=== PATIENT | female | born 1950 | race Caucasian/White ===

== ENCOUNTER 2021-03-24 08:38 | Outpatient (CLI) | payer MEDICARE, SELFPAY ==
--- NOTE | ~2021-03-24 | NM_ITS ---
NM stress w perf spect multi Procedure: The patient was stressed using Modified Clifford protocol. Prior to the end of exercise 31.5 mCi Tc 99m IV administered. Rest imaging performed following administration of 9.9 mCi Tc 99m IV. Images were reformatted into short axis, horizontal and vertical long axis sections for visual and qu antitative analysis. Indication: Chest pain Comparison: None Findings: Computer assisted qualitative and quantitative analysis of the immediate and delayed images revealed normal left ventricular perfusion without evidence of fixed or reversible perfusion abnorma lity to suggest ischemia or infarction. Normal left ventricular cavity size, wall motion and ejectio n fraction. Left ventricular ejection fraction measures 89%. Impression: 1: No scintigraphic evidence of resting or stress induced perfusion abnormality. 2: Normal left ventricle ejection fraction measuring 89%. Reviewed, dictated and finalized at location B. Impression: 1: No scintigraphic evidence of resting or stress induced perfusion abnormality . 2: Normal left ventricle ejection fraction measuring 89%.
--- NOTE | 2021-03-24 09:33 | EST_ITS ---
Patient Info Name: Esme Jaimes Age: 70 years : 1950 Gender: Female Ht: 66 in Wt: 175 lbs BSA: 1.94 m2 HR: 62 bpm BP: 147 / 93 mmHg Heart Rhythm: Sinus Rhythm Exam Date: 03/24/2021 9:43 AM Exam Location: [facility] Stress Patient Status: Outpatient Admit Date: 03/24/2021 Staff Ordering Physician: Lokesh Lainez DO Attending Provider: Lokesh Lainez DO Exercise Technologist: Lynn Carbone CT Exercise Physician: Latrell Chaidez DO Exam Type: CA stress test treadmill w NM Study Info Indications R07.89 - Other chest pain A nuclear stress test was performed. Summary 1. 1. Negative Clifford exercise stress test for ischemic ST changes by ECG criteria. 2. 2. Reduced functional capacity, achieving 5.9 METs of workload. 3. 3. Baseline hypertension with hypertensive response to exercise. 4. 4. Appropriate HR response to exercise. 5. 5. Appropriate HR recovery at 1 minute post exercise. 6. 6. Nuclear scan to follow and will be reported separately. Please correlate with it. 7. 7. Patient informed of the above results. Protocol: Clifford Stress ECG Details Stage: REST Duration (min): 2 min : 45 sec Speed (mph): 0.0 Grade (%): 0 HR (bpm): 58 SBP (mmHg): 147 DBP (mmHg): 93 METS: --- Stage: REST Duration (min): 17 min : 56 sec Speed (mph): 0.0 Grade (%): 0 HR (bpm): 61 SBP (mmHg): 147 DBP (mmHg): 93 METS: --- Stage: STAGE 1 Duration (min): 1 min : 0 sec Speed (mph): 1.7 Grade (%): 10 HR (bpm): 104 SBP (mmHg): 147 DBP (mmHg): 93 METS: --- Stage: STAGE 1 Duration (min): 2 min : 0 sec Speed (mph): 1.7 Grade (%): 10 HR (bpm): 119 SBP (mmHg): 147 DBP (mmHg): 93 METS: --- Stage: STAGE 1 Duration (min): 3 min : 0 sec Speed (mph): 1.7 Grade (%): 10 HR (bpm): 133 SBP (mmHg): 253 DBP (mmHg): 102 METS: --- Stage: STAGE 2 Duration (min): 0 min : 40 sec Speed (mph): 2.5 Grade (%): 12 HR (bpm): 137 SBP (mmHg): 253 DBP (mmHg): 102 METS: --- Stage: RECOVERY Duration (min): 0 min : 19 sec Speed (mph): 0.0 Grade (%): 0 HR (bpm): 137 SBP (mmHg): 254 DBP (mmHg): 102 METS: --- Stage: RECOVERY Duration (min): 1 min : 19 sec Speed (mph): 0.0 Grade (%): 0 HR (bpm): 124 SBP (mmHg): 254 DBP (mmHg): 102 METS: --- Stage: RECOVERY Duration (min): 2 min : 19 sec Speed (mph): 0.0 Grade (%): 0 HR (bpm): 115 SBP (mmHg): 254 DBP (mmHg): 102 METS: --- Stage: RECOVERY Duration (min): 3 min : 19 sec Speed (mph): 0.0 Grade (%): 0 HR (bpm): 102 SBP (mmHg): 264 DBP (mmHg): 106 METS: --- Stage: RECOVERY Duration (min): 4 min : 19 sec Speed (mph): 0.0 Grade (%): 0 HR (bpm): 99 SBP (mmHg): 264 DBP (mmHg): 106 METS: --- Stage: RECOVERY Duration (min): 5 min : 19 sec Speed (mph):
== END 2021-03-24 08:39 | disposition home or self-care (01) ==
PROVIDERS: PCP Internal Medicine; Visit Provider Internal Medicine
DX: R07.89 Other chest pain (principal)
CPT/HCPCS: 78452; 93017; A9502

== ENCOUNTER → 2021-08-18 09:49 | Outpatient (CLI) | payer MEDICARE, SELFPAY ==
[2021-08-18 18:48] LABS: SARS-CoV-2 RNA PCR Positive
== END ==
PROVIDERS: PCP Internal Medicine; Visit Provider Internal Medicine
DX: U07.1 COVID-19 (principal)
CPT/HCPCS: C9803; U0003; U0005

== ENCOUNTER → 2022-03-04 07:01 | Outpatient (CLI) | payer MEDICARE, SELFPAY ==
--- NOTE | ~2022-03-04 | XR_ITS ---
EXAMINATION: XR chest 2V 03/04/2022 07:15 INDICATION: Pneumonia PROCEDURE: 2 view chest COMPARISON: Comparison to multiple prior studies sequentially, with oldest reviewed study dated 11/2005. FINDINGS: There is left lower lobe airspace disease, best seen posteriorly on the lateral view, consi stent with pneumonia. The cardiomediastinal silhouette is within normal limits. There are no pleural effusions. There is no pneumothorax suspected. IMPRESSION: 1: Left lower lobe airspace disease, compatible with pneumonia. Reviewed, dictated and finalized at location A.
== END ==
PROVIDERS: PCP Internal Medicine; Visit Provider Internal Medicine
DX: J18.9 Pneumonia, unspecified organism (principal); R91.8 Other nonspecific abnormal finding of lung field
CPT/HCPCS: 71046

== ENCOUNTER 2022-10-20 00:44 | Day surgery (SDC) | payer MEDICARE, SELFPAY ==
[2022-10-06 14:43] VITALS: BMI 32.3
[2022-10-20 07:18] VITALS: BP 151/74; PULSE 82; RESP 21; TEMP 36.5; O2SAT 91
[2022-10-20] MEDS: LACTATED RINGERS 1,000 ML 150 ML IV CONT (07:34)
--- NOTE | 2022-10-20 08:01 | PM.HPGS ---
History of Present Illness History of Present Illness Consent: Risks, benefits, and alternatives have been discussed and questions answered. Patient agrees to proceed with procedure. Chief complaint: GERD, hx colon polyps Narrative: Esme Jaimes is a 72 year old female Presents today for both colonoscopy an EGD. Patient desires neoplasia screening colonoscopy. Patient's current weight appetite and bowel movements are normal. Patient denies abdominal pain. She has had no bleeding. She has had previous colonoscopies that have had showed colon polyps. Previous colonoscopy 2018. Additionally patient has history of chronic GE reflux disease. Currently symptoms are maintained on omeprazole 20mg p.o. daily. She notes if she stops this medication she promptly will have recurrent heartburn. She has been asked have follow-up EGD by primary care service. Patient denies any bleeding weight loss or dysphagia. Review of Systems Review of Systems: Review of systems noncontributory. [facility] Family History Family History Mother Patient's mother is Father Patient's father is Sibling Patient's sister is Social History Social History (Updated 09/23/22 @ 09:43 by Jarvis Mckeon MA) Smoking packs per day: 1 Smoking cigarettes per day: 20.0 Smoking status: Former smoker Second hand tobacco smoke exposure: No Smoking end date: 10/02/14 Alcohol intake: former Alcohol use details: rarely Substance use: never Substance use type: does not use Lack of Transportation: No Lack of Food: Never True Current Housing: I Have Housing Concerned About Future Housing: No Difficulty Paying Gas/Electric Bills: No Difficulty Paying for Meds: No Currently Unemployed: No Education: Bachelor's Degree Difficulty w/ Childcare or Family Care: No Living arrangements: alone Spiritual care concerns: No Meds Home Medications and Allergies Home Medications Medication Instructions Recorded Confirmed Type simvastatin 10 mg tablet 10 mg PO DAILY #90 tabs 02/09/22 10/06/22 Rx albuterol sulfate 90 mcg/actuation 2 puff inhalation Q4-6H PRN 03/09/22 10/06/22 Rx aerosol inhaler (ProAir HFA) shortness of breath or wheezing #18 grams ergocalciferol (vitamin D2) 1,250 50,000 unit PO WEEKLY #13 caps 04/25/22 10/06/22 Rx mcg (50,000 unit) capsule meloxicam 15 mg tablet 15 mg PO DAILY #90 tabs 05/10/22 10/06/22 Rx losartan 100 mg tablet 100 mg PO DAILY #90 tabs 05/19/22 10/06/22 Rx carvedilol 6.25 mg tablet 6.25 mg PO Q12H #180 tabs 06/15/22 10/06/22 Rx escitalopram oxalate 20 mg tablet 20 mg PO DAILY #30 tabs 06/29/22 10/06/22 Rx fluticasone propionate 50 2 spray intranasal DAILY PRN nasal 08/18/22 10/06/22 Rx mcg/actuation nasal congestion #15.8 mL spray,suspension omeprazole 20 mg capsule,delayed 20 mg PO DAILY 10/06/22 10/06/22 History release Allergies Allergy/AdvReac Type Severity Reaction Status Date / Time nabumetone Allergy Mild unknown Verified 10/20/22 07:15 amoxicillin AdvReac Intermediate Diarrhea Verified 10/20/22 07:15 Vital Signs Vital Signs - 24 hr 10/20/22 07:18 Temperature 97.7 F Pulse Rate 82 Respiratory Rate 21 H Blood Pressure 151/74 H Pulse Oximetry 91 Oxygen Delivery Room Air Exam Narrative: Physical exam reveals patient to be alert. Vital signs stable. HEENT exam is unremarkable. Patient is anicteric. Lungs are clear to auscultation and percussion. Heart is without murmur or extra sounds. Abdomen bowel sounds are present soft nontender with no organomegaly. Digital external rectal exam normal. Assessment and Plan Assessment and plan (1) GERD (gastroesophageal reflux disease): Code(s): K21.9 - Gastro-esophageal reflux disease without esophagitis Status: Acute Assessment and Plan: Patient with chronic GE reflu
--- NOTE | 2022-10-20 08:29 | WPDANESEPPF ---
Anes - Initial Pre Proc Eval Procedure: Operation Date: 10/20/22 08:30 Proposed Procedures p Esophagogastroduodenoscopy & Screening Colonoscopy - Keenan Vasquez MD Date/Time: 10/20/22 08:29 Surgeon: Keenan Vasquez MD Pre Op Diagnosis: GERD, hx colon polyps Patient Data Age: 72 Gender: F Height: 1.68 m Weight: 89.9 kg Last Vital Signs Temp 97.7 F 10/20/22 07:18 Pulse 82 10/20/22 07:18 Resp 21 H 10/20/22 07:18 BP 151/74 H 10/20/22 07:18 Pulse Ox 91 10/20/22 07:18 O2 Del Method Room Air 10/20/22 07:18 Allergies Allergy/AdvReac Type Severity Reaction Status Date / Time nabumetone Allergy Mild unknown Verified 10/20/22 07:15 amoxicillin AdvReac Intermediate Diarrhea Verified 10/20/22 07:15 Home Medications Medication Instructions Recorded Confirmed Type simvastatin 10 mg tablet 10 mg PO DAILY #90 tabs 02/09/22 10/06/22 Rx albuterol sulfate 90 mcg/actuation 2 puff inhalation Q4-6H PRN 03/09/22 10/06/22 Rx aerosol inhaler (ProAir HFA) shortness of breath or wheezing #18 grams ergocalciferol (vitamin D2) 1,250 50,000 unit PO WEEKLY #13 caps 04/25/22 10/06/22 Rx mcg (50,000 unit) capsule meloxicam 15 mg tablet 15 mg PO DAILY #90 tabs 05/10/22 10/06/22 Rx losartan 100 mg tablet 100 mg PO DAILY #90 tabs 05/19/22 10/06/22 Rx carvedilol 6.25 mg tablet 6.25 mg PO Q12H #180 tabs 06/15/22 10/06/22 Rx escitalopram oxalate 20 mg tablet 20 mg PO DAILY #30 tabs 06/29/22 10/06/22 Rx fluticasone propionate 50 2 spray intranasal DAILY PRN nasal 08/18/22 10/06/22 Rx mcg/actuation nasal congestion #15.8 mL spray,suspension omeprazole 20 mg capsule,delayed 20 mg PO DAILY 10/06/22 10/06/22 History release Patient hx anesthesia problems: none Family hx anesthesia problems: none Results Review: All pre-operative results and documents have been reviewed as part of the pre-operative evaluation. [facility] Family History Family History Mother Patient's mother is Father Patient's father is Sibling Patient's sister is Social History Social History (Updated 09/23/22 @ 09:43 by Jarvis Mckeon MA) Smoking packs per day: 1 Smoking cigarettes per day: 20.0 Smoking status: Former smoker Second hand tobacco smoke exposure: No Smoking end date: 10/02/14 Alcohol intake: former Alcohol use details: rarely Substance use: never Substance use type: does not use Lack of Transportation: No Lack of Food: Never True Current Housing: I Have Housing Concerned About Future Housing: No Difficulty Paying Gas/Electric Bills: No Difficulty Paying for Meds: No Currently Unemployed: No Education: Bachelor's Degree Difficulty w/ Childcare or Family Care: No Living arrangements: alone Spiritual care concerns: No Anes - Eval Final PreProcedure Day of Procedure 10/20/22 08:29 Patient weight: obese Heart: regular rate and rhythm Lungs: clear to auscultation Airway: Mallampati scale class III Neurological: alert and oriented Last oral intake: >/= 8 hours ASA classification: III Emergent: no Anesthetic plan: proceed Anesthesia type and monitoring: general GIVS and standard monitoring Results Review: All pre-operative results and documents have been reviewed as part of the pre-operative evaluation. Informed Consent: The patient's anesthetic plan and its attendant risks and benefits were discussed with the patient/family/POA. Questions were solicited and answers provided to the satisfaction of the patient/family/POA.
--- NOTE | 2022-10-20 09:01 | SUR.OPER ---
EGD START: 839; END: 842. COLONOSCOPY START: 848; END: 59.
[2022-10-20 09:04] VITALS: BP 121/75; PULSE 63; RESP 15; O2SAT 93
[2022-10-20 09:14] VITALS: BP 128/57; PULSE 64; RESP 15; O2SAT 94
[2022-10-20 09:24] VITALS: BP 131/78; PULSE 62; RESP 15; O2SAT 93
== END 2022-10-20 09:36 | disposition home or self-care (01) ==
PROVIDERS: PCP Internal Medicine; Visit Provider Internal Medicine Gastroenterology
PROC: 0DJ08ZZ Inspection of Upper Intestinal Tract, Via Natural or Artificial Opening Endoscopic (ICD-10-PCS; CPT 43235; principal; 2022-10-20 08:30)
DX: Z12.11 Encounter for screening for malignant neoplasm of colon (principal); D12.0 Benign neoplasm of cecum; D12.5 Benign neoplasm of sigmoid colon; K64.8 Other hemorrhoids; K21.9 Gastro-esophageal reflux disease without esophagitis; Z79.51 Long term (current) use of inhaled steroids; Z87.891 Personal history of nicotine dependence; E66.9 Obesity, unspecified; Z68.32 Body mass index [BMI] 32.0-32.9, adult
CPT/HCPCS: 45385; 43239; 87081; 88305; J2704; J7120

== ENCOUNTER 2022-12-06 09:36 | Outpatient (CLI) | payer MEDICARE, SELFPAY ==
--- NOTE | 2023-01-03 15:20 | WPDSLEEPSTUD ---
Sleep Study Date of Study: 12/06/22 Ordering Provider: Lokesh Lainez DO Interpreting Physician: Arely Pratt DO Sleep Study Type: Split Polysomnogram Height: 1.7 m Weight: 89.811 kg Body Mass Index: 31.0 Neck Circumference (inches): 17.5 [place]: 12 Reason for Sleep Study Daytime hypersomnia, snoring Sleep History The patient is a 72-year-old female with hypertension, hyperlipidemia, anxiety, GERD, vitamin-D deficiency and history of tobacco use that had a sleep study ordered by her primary care physician for evaluation of sleep apnea. The patient rarely awakens from sleep short of breath. She denies awakening at night with heartburn, belching or cough. She frequently snores. She occasionally has trouble sleeping when she has a cold. She denies waking up gasping for air throughout the night. She denies having breathing problems at night observed by herself or others. She denies sweating excessively at night. She occasionally has heart palpitations or irregular heartbeats during the night. She constantly falls asleep during the day but never while driving. He denies sleep paralysis, cataplexy and hypnagogic / hypnopompic hallucinations. She denies feeling afraid of going to sleep. She rarely has nightmares. She rarely remembers her dreams. She occasionally has thoughts racing through her mind. She rarely feels sad or depressed. She frequently has anxiety. She frequently has muscular tension. She frequently notices parts of her body jerk. She rarely kicks during the night. She rarely has crawling and aching feelings in her legs and occasionally has leg pain during the night. She denies awakening with morning jaw pain. She is occasionally bothered by pain during the day and constantly awakened by pain during the night. She frequently wakes up feeling stiff in the morning. She occasionally wakes up with sore or achy muscles. She frequently wakes up with pain in the neck, spine or other joints. She goes to bed between 10 to 10:30 p.m. on both weekdays and weekends. It takes her 15 minutes to fall asleep. She wakes up 3 times throughout the night to urinate and is able to fall back asleep within a few minutes. She wakes up at 7:00 a.m. on both weekdays and weekends. She typically gets 8-1/2 hours of sleep per night. She will stay in bed for 5 minutes after waking up in the morning. She does not consume any caffeinated beverages within 2 hours of bedtime. She does not engage in physical exercise before bedtime. She will watch television before falling asleep. She will take naps in the afternoon or the evening but they are not refreshing. She drinks half a cup of coffee per day. She is a former smoker. She occasionally consumes alcoholic beverages. She denies recreational drug use. [facility] Family History Family History Mother Patient's mother is Father Patient's father is Sibling Patient's sister is Social History Social History Smoking packs per day: 1 Smoking cigarettes per day: 20.0 Smoking status: Former smoker Second hand tobacco smoke exposure: No Smoking end date: 10/02/14 Alcohol intake: former Alcohol use details: rarely Substance use: never Substance use type: does not use Lack of Transportation: No Lack of Food: Never True Current Housing: I Have Housing Concerned About Future Housing: No Difficulty Paying Gas/Electric Bills: No Difficulty Paying for Meds: No Currently Unemployed: No Education: Bachelor's Degree Difficulty w/ Childcare or Family Care: No Living arrangements: alone Spiritual care concerns: No Medications Home Medications Medication Instructions Recorded Confirmed Type albuterol sulfate 90 mcg/actuation 2 puff inhalation Q4-6H PRN 03/09/22 10/06/22
[2023-01-03 16:04] VITALS: BMI 31.0
== END 2022-12-07 07:04 | disposition home or self-care (01) ==
LOC: ANHCSM 09:38
PROVIDERS: PCP Internal Medicine; Visit Provider Internal Medicine
DX: G47.33 Obstructive sleep apnea (adult) (pediatric) (principal); G47.10 Hypersomnia, unspecified; I10 Essential (primary) hypertension; E78.5 Hyperlipidemia, unspecified; K21.9 Gastro-esophageal reflux disease without esophagitis; E55.9 Vitamin D deficiency, unspecified; Z87.891 Personal history of nicotine dependence
CPT/HCPCS: 95811

== ENCOUNTER 2023-07-11 08:14 | Emergency (ER) | payer MEDICARE, SELFPAY ==
--- NOTE | ~2023-07-11 | CT_ITS ---
EXAMINATION: CT lumbar spine wo con DATE: 07/11/2023 10:24 INDICATION: Low back pain. Sciatica. TECHNIQUE: Computed tomography (CT) of the lumbar spine was performed without intravenous contrast. A utomated exposure control and iterative reconstruction technique were employed. The dose-length produ ct was 903.91 mGy-cm. COMPARISON: None FINDINGS: Aortic atherosclerosis is noted. There is 3 degrees levocurvature of lumbar spine. There ar e Schmorl's nodes at most levels. There is mildly decreased disc height at L1-L2, moderately decrease d disc height at L2-L3, and mildly decreased disc height at L3-L4 and L5-S1. The following disc level s are specifically discussed: L1-L2: The disc is bulging. There is moderate bilateral facet joint osteoarthritis. There is mild marylu ateral neural foraminal stenosis. There is mild central canal stenosis. L2-L3: The disc is bulging. There is moderate bilateral facet joint osteoarthritis. There is mild marylu ateral neural foraminal stenosis. There is mild central canal stenosis. L3-L4: The disc is bulging. There is severe bilateral facet joint osteoarthritis. There is mild bilat eral neural foraminal stenosis. There is mild central canal stenosis. L4-L5: The disc is bulging. There is severe bilateral facet joint osteoarthritis. There is mild bilat eral neural foraminal stenosis. There is mild central canal stenosis. L5-S1: The disc is bulging. There is severe bilateral facet joint osteoarthritis. There is mild bilat eral neural foraminal stenosis. There is mild central canal stenosis. IMPRESSION: 1. Moderate lumbar spondylosis. Reviewed, dictated and finalized at location A.
[2023-07-11 08:15] VITALS: BP 166/98; PULSE 69; RESP 16; TEMP 36.7; O2SAT 97
--- NOTE | 2023-07-11 09:18 | ED.BACK ---
HPI - Back Pain/Injury General Chief Complaint: Back Pain/Injury Stated Complaint: back pain Time Seen by Provider: 07/11/23 08:36 History of Present Illness HPI Narrative: Patient is a 72-year-old female presenting with lower back pain. Patient states that she has had lower back pain before but now it is radiating down her right leg which is never done before. States that it is like a shooting pain with tingling. She was moving a heavy box about a week ago and felt pain in her lower back which has been worsening. No numbness or weakness, saddle anesthesia, bladder or bowel incontinence, fevers. No further injuries or complaints. Related Data Home Medications Medication Instructions Recorded Confirmed omeprazole 20 mg capsule,delayed 20 mg PO DAILY 10/06/22 07/19/23 release umeclidinium 62.5 mcg-vilanterol 1 inh inhalation DAILY 04/21/23 07/19/23 25 mcg/actuation powdr for inhalation (Anoro Ellipta) Allergies Allergy/AdvReac Type Severity Reaction Status Date / Time nabumetone Allergy Mild unknown Verified 07/18/23 13:17 amoxicillin AdvReac Intermediate Diarrhea Verified 07/18/23 13:17 Review of Systems Review of Systems: All systems reviewed & are unremarkable except as noted in HPI and below PMFSH Family History Family History Mother Patient's mother is Father Patient's father is Sibling Patient's sister is Social History Social History Smoking packs per day: 1 Smoking cigarettes per day: 20.0 Smoking status: Former smoker Second hand tobacco smoke exposure: No Smoking end date: 10/02/14 Alcohol intake: former Alcohol use details: rarely Substance use: never Substance use type: does not use Lack of Transportation: No Lack of Food: Never True Current Housing: I Have Housing Concerned About Future Housing: No Difficulty Paying Gas/Electric Bills: No Difficulty Paying for Meds: No Currently Unemployed: No Education: Bachelor's Degree Difficulty w/ Childcare or Family Care: No Living arrangements: alone Spiritual care concerns: No Exam Narrative: GENERAL: Well-appearing and in no acute distress. HEAD: Normocephalic, atraumatic. EYES: PERRLA and EOMI. ENT: Grossly unremarkable NECK: Supple. CHEST: No respiratory distress. HEART: Regular rate and rhythm ABDOMEN: Nondistended BACK: Tenderness bilateral paraspinal muscles lower lumbar region EXTREMITIES: Normal range of motion. No edema. SKIN: Warm, dry, no rash. NEURO: No focal deficits. Alert and oriented x3. 5 out of 5 strength in both lower extremities without sensory deficits, ambulating normally PSYCH: Normal mood and affect. Course Vital Signs Vital signs: Vital Signs Temperature 98.0 F 07/11/23 08:15 Pulse Rate 69 07/11/23 08:15 Respiratory Rate 16 07/11/23 08:15 Blood Pressure 166/98 H 07/11/23 08:15 Pulse Oximetry 97 07/11/23 08:15 Oxygen Delivery Room Air 07/11/23 08:15 Temperature 98.0 F 07/11/23 08:15 Pulse Rate 69 07/11/23 08:15 Respiratory Rate 16 07/11/23 08:15 Blood Pressure 166/98 H 07/11/23 08:15 Pulse Oximetry 97 07/11/23 08:15 Oxygen Delivery Room Air 07/11/23 08:15 MDM - Back Pain/Injury MDM Narrative Medical decision making narrative: 72-year-old female presenting with lower back pain that shoots down her right leg. Vital stable. Exam remarkable for the above. CT lumbar spine shows moderate lumbar spondylosis but no other acute abnormalities. Discussed reassuring imaging with the patient. Advised that she can continue taking her meloxicam and use Tylenol as well. Percocet for severe pain. We will start her on short course of steroids. Advise close PCP follow-up. Strict return precautions given. Voiced understanding and is agreeable with plan. Dischar
[2023-07-11] MEDS: predniSONE 20 MG TABLET 40 MG PO (10:42)
== END 2023-07-11 11:16 | disposition home or self-care (01) ==
PROVIDERS: Emergency Provider Emergency Medicine; PCP Internal Medicine
DX: M54.50 Low back pain, unspecified (principal); M54.16 Radiculopathy, lumbar region
CPT/HCPCS: 72131; 99284; J7512

== ENCOUNTER → 2023-07-26 08:44 | Outpatient (CLI) | payer MEDICARE, SELFPAY ==
--- NOTE | ~2023-07-26 | MR_ITS ---
MRI of the lumbar spine Clinical History: Back pain Technique: Axial T2-weighted images, and sagittal T1-weighted, T2-weighted, and and T2 fat-sat images were acquired. Findings: There is no fracture or subluxation of the lumbar spine. Vertebral bodies maintain normal h eight and alignment. No suspicious bone marrow signal abnormality seen. At L1-L2, there is minimal disc bulge with moderate facet arthropathy. No central canal stenosis. No definite neural foraminal narrowing. At L2-L3, there is no disc bulge or herniation. There is mild facet arthropathy. No central canal manuel nosis or neural foraminal narrowing. At L3-L4, there is minimal disc bulge with mild to moderate facet arthropathy. No sarah central canal stenosis. Minimal right neural foraminal narrowing. Left neural foramen preserved. At L4-L5, there is minimal disc bulge with moderate facet arthropathy. There is minimal central canal stenosis. Neural foramina are preserved. At L5-S1, there is disc bulge, with probable right foraminal disc protrusion and right lateral recess stenosis. There is moderate facet arthropathy. No central canal stenosis. There is mild right neural foraminal narrowing. Left neural foramen preserved. Paravertebral soft tissues are unremarkable. Impression: Mild degenerative spondylosis overall, as detailed above. Reviewed, dictated and finalized at [facility]. Impression: Mild degenerative spondylosis overall, as detailed above.
== END ==
PROVIDERS: PCP Physician Assistant; Visit Provider Physician Assistant
DX: M51.36 Other intervertebral disc degeneration, lumbar region (principal); M51.37 Other intervertebral disc degeneration, lumbosacral region
CPT/HCPCS: 72148

== ENCOUNTER 2025-05-05 08:12 | Outpatient (CLI) | payer MEDICARE, SELFPAY ==
--- NOTE | ~2025-05-05 | DEXA_ITS ---
Bone Density Report Name: SAMUEL MOON Age: 74 Sex: Female Ethnicity: White Date of : 1950 Indication: postmenopausal; screening for osteoporosis; prior fracture; asthma or emphysema; hysterectomy; Referring Provider: YANNI ROBLERO Study: Bone densitometry was performed. Exam Date: May 05, 2025 Accession number: [id number] Bone Density: Region BMD T-score Z-score Classification AP Spine(L1-L4) 1.056 0.1 2.4 Normal Femoral Neck (Left) 0.744 -0.9 1.0 Normal Total Hip (Left) 0.973 0.3 2.0 Normal Femoral Neck (Right) 0.779 -0.6 1.4 Normal Total Hip (Right) 0.969 0.2 1.9 Normal Total Hip Mean 0.971 0.3 2.0 Normal World Health Organization criteria for BMD impression classify patients as: Normal (T-score at or above -1.0), Osteopenia (T-score between -1.0 and -2.5), or Osteoporosis (T-score at or below -2.5). 10-year Fracture Risk: FRAX not reported because: All T-scores for Spine Total, Hip Total, Femoral Neck at or above -1.0 Previous Exams: -- Region Exam Age BMD T-score BMD Change BMD Change Date g/cm2 vs Baseline vs Previous -- AP Spine (L1-L4) 05/05/2025 74 1.056 0.1 2.8%* 2.8%* 10/01/2018 67 1.028 -0.2 Total Hip(Left) 05/05/2025 74 0.973 0.3 1.3% 1.3% 10/01/2018 67 0.960 0.1 Total Hip(Right) 05/05/2025 74 0.969 0.2 3.1%* 3.1%* 10/01/2018 67 0.939 0.0 -- *Denotes significance at 95% confidence level, LSC for AP Spine = 0.022 g/cm2, LSC for Total Hip = 0.027 g/cm2 Clinical Information Provided by Patient: Has had a low trauma fracture Has used the following medications: Vitamin D Has the following medical conditions: Asthma or Emphysema, Hysterectomy Patient maximum height was 67 Menopause Age: 41 No regular weight bearing exercise Drinks caffeinated beverages Onset of menses at age 14 Number of children 2 Impression: The patient has normal bone mass. The patient has risk factors, including: previous fracture. No significant bone loss was observed. Discussion: BONE DENSITY IS ABOVE THE MINIMUM DESIRABLE LEVEL AT ALL SKELETAL SITES TESTED. This patient?s bone mineral density is above the minimum desirable level (T-score -1.0 or better) at all sites measured. The patient should follow a healthful lifestyle (good nutrition with adequate calcium and vitamin D, and appropriate weight-bearing exercise). Follow-Up: Consider repeating this study in 5 years or sooner if there is some new clinical indication. Reported by: KAMILLA on 05/05/2025 9:00:00 AM. Reviewed, dictated and finalized at location A.
== END 2025-05-05 08:13 | disposition home or self-care (01) ==
PROVIDERS: PCP Internal Medicine; Visit Provider Nurse Practitioner
DX: Z78.0 Asymptomatic menopausal state (principal)
CPT/HCPCS: 77080

== ENCOUNTER 2025-05-30 12:19 | Outpatient (CLI) | payer MEDICARE, SELFPAY ==
--- NOTE | ~2025-05-30 | XR_ITS ---
XR chest 2V 05/30/2025 12:46 Indication: Cough Procedure: 2 view chest Comparison: Comparison to multiple prior studies sequentially, with oldest reviewed study dated 10/01/2008. Findings: Heart size normal. Left basilar infiltrates, suspicious for pneumonia. No pleural effusion, edema or pneumothorax. No acute osseous abnormality. Impression: 1: Left basilar infiltrates, suspicious for pneumonia. Reviewed, dictated and finalized at location O. Impression: 1: Left basilar infiltrates, suspicious for pneumonia.
--- OUTSIDE RECORDS SUMMARY | 2025-05-30 12:28 | XMS_ITS | Clinical Summary ---
Author Organization [facility] Address [address], [facility] [address] [place] [address] Phone Care Team Providers Care Net Trainer Name Role Phone Lokesh Lainez Cecelia DO Primary Care Provider Allergies No known active allergies Medications Bismuth 262 MG Chewable Tablet 3 PO QID FOR 10 DAYS 120 Tab 0 01/17/2017 Active metroNIDAZOLE (FLAGYL) 250 MG Tablet TAKE 1.5 TABS PO QID FOR 10 DAYS 60 Tab 0 01/17/2017 Active doxycycline hyclate (VIBRAMYCIN) 100 MG Capsule TAKE ONE TAB BID FOR 10 DAYS 20 Cap 0 01/17/2017 Active omeprazole (PRILOSEC) 20 MG CAPSULE DELAYED RELEASE TAKE ONE BID 20 Cap 0 01/17/2017 Active acetaminophen (TYLENOL) 500 MG Tablet Take 1,000 mg by mouth every 4 hours as needed for Pain. Active ibuprofen (ADVIL) 200 MG Tablet Take 400 mg by mouth every 8 hours as needed. Active simvastatin (ZOCOR) 10 MG Tablet Take 10 mg by mouth every evening. Active Family History Medical History Relation Name Comments Cancer Other Lymphoma Diabetes Other Heart Disease Other Lung Cancer Other Parkinsonism Other Relation Name Status Comments Other Social History Tobacco Use Types Packs/Day Years Used Date Smoking Tobacco: Former Cigarettes 1 40 0 01/20/1975 - 01/20/2015 Smokeless Tobacco: Never Alcohol Use Standard Drinks/Week Comments Yes 0 (1 standard drink = 0.6 oz pur e alcohol) Occasional Comments Unknown Sex and Gender Information Value Date Recorded Sex Assigned at Not on file Legal Sex Female 7:11 PM CDT Gender Identity Not on file Sexual Orientation Not on file Plan of Treatment Health Maintenance Due Date Last Done Comments Hepatitis C Virus (HCV) Screening 1950 TdaP Immunization 1950 Cologuard 1996 Immunochemical Fecal Occult Blood 1996 Pneumococcal Immunization (5 0+ years) (1 of 1 - PCV) 2001 Zoster Immunization (1 of 2) 2001 SARS-COV-2 Immunization (1 - season) 2024 Influenza Immunization (#1) 2025 Respiratory Syncytial Virus (RSV) Immunization (Adult) (1 - 1-dose 75+ series) 2026 Colonoscopy 05/24/2028 05/24/2018 Colorectal Cancer Screening 05/24/2028 Hepatitis B Immunization Aged Out No longer eligible based on patient's age to complete this topic Human Papillomavirus (HPV) Immunization Aged Out No longer eligible b ased on patient's age to complete this topic Meningococcal Immunization (ACWY) Aged Out No longer eligible based on patient's age to complete this topic Rotavirus Immunization Aged Out No lo nger eligible based on patient's age to complete this topic Procedures Procedure Name Priority Date/Time Associated Diagnosis Comments COLONOSCOPY Routine 05/24/2018 from Last 3 Months or Most Recently Relevant to Health Maintenance Results * COLONOSCOPY (05/24/2018) Keenan Reeder DO PROCEDURE/MINOR SURGICAL ORDERA BLES Final Result from Last 3 Months or Most Recently Relevant to Health Maintenance Insurance [facility] Care Teams Net Trainer Relationship Specialty Start Date End Date Lokesh Lainez DO [address] [place] [address] PCP - General Internal Medicine 12/22/16
--- OUTSIDE RECORDS SUMMARY | 2025-05-30 12:28 | XMS_ITS | Clinical Summary ---
Author Organization [facility] Address [address] [place] [address] Care Team Providers Care Ic Designer Standard Cells Name Role Phone Lokesh Lainez DO Primary Care Provider [phone] Source Comments [facility],non-owned Affiliates and Associated Physician Practices is amultiple site organization consisting of ambulatory clinics and hospital sitesin [place], [place], [place] and [place]. This disclosure is being madepursuant to the Care Everywhere program and may not contain all information available regarding this patient. Last updated 18.[facility] Allergies No known active allergies Medications * Be aware that medications may not be up to date on this document. Alwaysverify current medications with the patient. losartan (COZAAR) 50 MG tablet Take 1 (one) tablet by mouth once daily 6 Active simvastatin (ZOCOR) 10 MG tablet Take 1 (one) tablet by mouth once daily 6 Active vitamin D, ergocalciferol, (DRISDOL) 45907 UNITS capsule Take 1 (one) capsule by mouth Two times a week 7 Active escitalopram (LEXAPRO) 10 MG tablet Take 1 (one) tablet by mouth once daily 9 Active omeprazole (PRILOSEC) 20 MG capsule Take 1 (one) capsule by mouth daily before breakfast 7 Active albuterol HFA (PROVENTIL;VENT FELIPE;PROAIR) 108 (90 Base) MCG/ACT inhaler Inhale 2 (two) puffs by mouth as needed 0 Active fluticasone propionate (FLONASE) 50 MCG/ACT nasal spray [place] 2 (two) sprays into each nostril as needed 0 Active meloxicam (Mobic) 15 MG tablet meloxicam 15 mg tablet 2 Active carvedilol (Coreg) 6.25 MG tablet carvedilol 6.25 mg tablet Take 1 tablet twice a day by oral route. 2 Active Active Problems No known active problems Family History Medical History Relation Name Comments Cancer - Breast Sister Cancer - Other Sister a different s ister than the one with breast cancer Relation Name Status Comments Sister Social History Tobacco Use Types Packs/Day Years Used Date Smoking Tobacco: Former Smokeless Tobacco: Never Tobacco Cessation:Counseling Given: Not Answered Alcohol Use Standard Drinks/Week Comments No 0 (1 standard drink = 0.6 oz pur e alcohol) PHQ-2 Answer Date Recorded Patient Health Questionnaire-2 Score 0 10/07/2024 Comments No Sex and Gender Information Value Date Recorded Sex Assigned at Not on file Legal Sex Female 12:03 PM CDT Gender Identity Female 08/23/2021 8:30 AM COMMODITY TRADER Sexual Orientation Straight 08/23/2021 8: 29 AM COMMODITY TRADER Last Filed Vital Signs Vital Sign Reading Time Taken Comments Blood Pressure 132/78 10/14/2024 10:41 AM COMMODITY TRADER Pulse - - Temperature 37.2 C (99 F) 08/30/2021 10:01 AM COMMODITY TRADER Respiratory Rate - - Oxygen Saturation - - Inhaled Oxygen Concentration - - Weight 85.3 kg (188 lb) 10/14/2024 10:41 AM COMMODITY TRADER Height 166 cm (5' 5.35) 10/14/2024 10:41 AM COMMODITY TRADER Body Mass Index 30.95 10/14/2024 10:41 AM COMMODITY TRADER Plan of Treatment Health Maintenance Due Date Last Done Comments COLOGUARD (AGES 45-75) - COLON CA SCREENING 1950 COLON MONITORING 1950 COLONOSCOPY - COLON CA SCREENING 1950 CT COLONOGRAPHY - COLON CA SCREENING 1950 Colorectal Cancer Screening 1950 FIT - COLON CA SCREENING 1950 FLEX SIG - COLON CA SCREENING 1950 MEDICARE AWV 12 MONTHS 1950 HEPATITIS C SCREENING 10/05/1969 DTAP/TDAP/TD VACCINES (1 - Tdap) 1970 PNEUMOCOCCAL VACCINE 50+ (1 of 1 - PCV) 2001 ZOSTER VACCINE (1 of 2) 2001 BONE DENSITY TESTING 10/01/2020 10/01/2018 (Done Outside Per Report) SCREENING FOR DIABETES 09/20/2022 COVID-19 VACCINE (3 - season) 2024 11/24/2020, 10/30/2020 INFLUENZA VACCINE (#1) 2025 , 08/25/2017, 06/22/2014, Additional history exists MAMMOGRAM 06/11/2025 06/11/2024, 06/02, 04/19/2023, Additional history exists Respiratory Syncytial Virus (RSV) Vaccine Pt: or over 60 yrs (1 - 1-dose 75+ series) 2026 DEPRESSION SCREENING Completed 10/14/2024, 09/20/20 22 HEPATITIS B VACCINE Aged Out No longe r eligible based on patient's age to complete this topic HIB VACCINE Aged Out No longer eligi ble based on patient's age to complete this topic HPV VACCINE Aged Out No longer eligi ble based on patient's age to complete this topic MENINGOCOCCAL (Group B) VACCINE SHARED DECISION-MAKING Aged Out No longer eligible based on patient's age to complete this topic MENINGOCOCCAL GROUPS A/C/Y/W VACCINE Aged Out No longer eligible based on patient's age to complete this topic Procedures Procedure Name Priority Date/Time Associated Diagnosis Comments MAMMO SCREENING BILATERAL Routine 08/17/2016 from Last 3 Months or Most Recently Relevant to Health Maintenance Results * MAMMO SCREENING BILATERAL (08/17/2016) Anatomical Region Laterality Modality Breast Mammography us Scanned Document MAMMO ORDERABLES Final Result from Last 3 Months or Most Recently Relevant to Health Maintenance Insurance MEDICARE AETNA MEDICARE AETNA Care Teams Ic Designer Standard Cells Relationship Specialty Start Date End Date Lokesh Lainez DO [address] [place] [address] PCP - General Internal Medicine 07/20/16
--- OUTSIDE RECORDS SUMMARY | 2025-05-30 12:28 | XMS_ITS ---
Author Organization [facility] Address [address] [place] [address] Care Team Providers Care Beauty Counselor Name Role Phone Shilo Odom MD Unavailable [phone] Porfirio Baeza DO Primary Care Provider [phone] Active Problems Problem Noted Date Diagnosed Date Screening for lung cancer 04/18/2023 Malignant neoplasm of lung 04/18/2023 Abnormal findings on diagnostic imaging of breas t 03/16/2020 Depression 07/16/2019 HTN (hypertension) 07/16/2019 HLD (hyperlipidemia) 07/16/2019 Emphysema lung 07/16/2019 Breast mass, right 12/11/2018 Chronic parotitis 06/12/2018 Current Treatment and Therapy Plans No current plan information found. Past Treatment and Therapy Plans No past plan information found. Lifetime Dose Tracking * Chemical Lifetime Dose Automatic Entry Manual Entr y DLP 183 mGycm 183 mGycm 0 mGycm CTDIvol 4.99 mGy 4.99 mGy 0 mGy Resolved Problems Problem Noted Date Diagnosed Date Resolved Date Vaginal yeast infection 06/12/201809/01 Chronic parotitis 03/27/2018 06/12/2018 Lung mass 09/08/2015 07/16/2019 Disorder of lung 08/17/2015 07/16/2019
--- OUTSIDE RECORDS SUMMARY | 2025-05-30 12:28 | XMS_ITS | Clinical Summary ---
Author Organization [facility] Address [address] [place] [address] Care Team Providers Care Vocational Training Teacher Name Role Phone Shilo Odom MD Unavailable Porfirio Baeza DO Primary Care Provider [phone] Allergies No known active allergies Medications ALPRAZolam (XANAX) 0.25 mg tablet Take 0.25 mg by mouth daily as needed. 6 Active simvastatin (ZOCOR) 10 mg tablet Take 1 tablet (10 mg total) by mouth nightly Active losartan (COZAAR) 50 mg tablet Take 1 tablet (50 mg total) by mouth nightly 6 Active cholecalciferol (VITAMIN D-3) 2,000 unit capsule 2,000 Units Active albuterol HFA (PROVENTIL HFA,VENTOLIN HFA,PROAIR HFA) 90 mcg/actuation inhaler 0 Active omeprazole (PriLOSEC) 20 mg capsule TAKE ONE BID 7 Active carvediloL (COREG) 6.25 mg tablet carvedilol 6.25 mg tablet Active ergocalciferol (VITAMIN D) 50,000 unit capsule Take 1 capsule (50,000 Units total) by mouth 2 (two) times a week 7 Active fluticasone propionate (FLONASE) 50 mcg/actuation nasal spray fluticasone propionate 50 mcg/actuation nasal spray,suspensio n 0 Active meloxicam (MOBIC) 15 mg tablet 2 Active losartan-hydroCH LOROthiazide (HYZAAR) 100-12.5 mg per tablet 4 Active Ozempic 1 mg/dose (4 mg/3 mL) pen injector injection 4 Active Ozempic 2 mg/dose (8 mg/3 mL) pen injector injection 4 Active clobetasoL (TEMOVATE) 0.05 % external solution APPLY TO THE AFFECTED AREA(S) DAILY 3 Active escitalopram (LEXAPRO) 20 mg tablet 4 Active umeclidinium-eb anteroL (ANORO ELLIPTA) 62.5-25 mcg/actuation blister with deviceIndication s:Pulmonary emphysema, unspecified emphysema type (HCC) Inhale 1 puff daily 30 each 2 4 Active Active Problems Problem Noted Date Diagnosed Date Screening for lung cancer 04/18/2023 Malignant neoplasm of lung 04/18/2023 Abnormal findings on diagnostic imaging of breas t 03/16/2020 Depression 07/16/2019 HTN (hypertension) 07/16/2019 HLD (hyperlipidemia) 07/16/2019 Emphysema lung 07/16/2019 Breast mass, right 12/11/2018 Chronic parotitis 06/12/2018 Resolved Problems Problem Noted Date Diagnosed Date Resolved Date Vaginal yeast infection 06/12/201809/01 Chronic parotitis 03/27/2018 06/12/2018 Lung mass 09/08/2015 07/16/2019 Disorder of lung 08/17/2015 07/16/2019 Encounters Date Type Department Care Team Description 05/06/2025 9:30 AM CDT [facility] [address] [place] [address] Advanced Medicine [address]th [place] [address] [place] [address] Eduardo Zayas MD Screening for lung cancer (Primary Dx); Pulmonary emphysema, unspecified emphysema type (HCC) 05/06/2025 8:35 AM CDT - 05/06/2025 11:59 PM CDT Hospital Encounter [facility] [address] [place] [address] Pulmonary emphysema, unspecified emphysema type (HCC); Screening for lung cancer Discharge Disposition: Discharge to home or self care from Last 3 Months Surgical History Surgery Date Site/Laterality Comments HYSTERECTOMY BLADDER SURGERY 10/02/2014 - 10/01/2015 VOCAL FOLD LESION EXCISION 10/02/2016 - 10/01/2017 COLONOSCOPY BREAST BIOPSY Medical History Medical History Date Comments Bone fracture Hypertension Anxiety Hyperlipidemia Pulmonary nodules Chronic parotitis Emphysema of lung Family History Medical History Relation Name Comments Heart disease Father Lymphoma Mother Alzheimer's disease Sister 1 Lung cancer Sister 1 Family history of lung cancer - (Added by TW Conv) parkinsons disease Sister 1 Breast cancer Sister 2 Anesthesia problems Neg Hx Clotting disorder Neg Hx Malig Hypertension Neg Hx Malig Hyperthermia Neg Hx Pseudochol deficiency Neg Hx Stroke Neg Hx Relation Name Status Comments Father Mother Sister 1 Sister 2 Alive Social History Tobacco Use Types Packs/Day Years Used Date Smoking Tobacco: Former Cigarettes Q uit: 05/15/2015 Smokeless Tobacco: Never Comments:quit 3 years ago Alcohol Use Standard Drinks/Week Comments Yes 0 (1 standard drink = 0.6 oz pur e alcohol) wine mixed drinks on occasion Comments No Sex and Gender Information Value Date Recorded Sex Assigned at Not on file Legal Sex Female 12:13 AM CLINICAL SOCIOLOGIST Gender Identity Not on file Sexual Orientation Not on file Obstetrics History Para Term AB IAB SAB Ectopic Multiple Livin g Live Births 2 2 Last Filed Vital Signs Vital Sign Reading Time Taken Comments Blood Pressure 112/70 05/06/2025 9:29 AM CDT Pulse 72 05/06/2025 9:29 AM CDT Temperature 36.4 C (97.6 F) 05/06/2025 9:29 AM CDT Respiratory Rate 18 05/06/2025 9:29 AM CDT Oxygen Saturation 95% 05/06/2025 9:29 AM CDT Inhaled Oxygen Concentration - - Weight 84.9 kg (187 lb 3.2 oz) 05/06/2025 9:29 A M CDT Height 167.6 cm (5' 6) 05/06/2025 9:29 AM CDT Body Mass Index 30.21 05/06/2025 9:29 AM CDT Plan of Treatment Health Maintenance Due Date Last Done Comments Colon Cancer Screening-Colonoscopy 1950 Depression Screening 1950 Fall Risk Assessment 1950 Hepatitis C Screening 1950 Osteoporosis Screening-Bone Density Scan 1950 DTaP/Tdap/Td Vaccine (1 - Tdap) 1962 Hepatitis B Screening 1969 Zoster Vaccine (2 of 3) 11/08/2014 09/13/2014 Well Visit 65+ 2016 Pneumococcal vaccine 65+ (3 of 3 - PCV20 or PCV21) 07/12/2023 07/12/2018, 01/19/2014 Influenza Vaccine (#1) 2025 9, 07/12/2018, 08/05/2016, Additional history exists Breast Cancer Screening-Mammogram 06/11/2025 06/11/2024, 04/19/2023, 03/24/2022, Additional history exists Lung Cancer Screening 05/07/2026 05/06/2025 , 05/07/2024, 04/18/2023, Additional history exists Procedures Procedure Name Priority Date/Time Associated Diagnosis Comments CT CHEST WO CONTRAST F/U LUNG SCREEN PROTOCOL Schedule Routine, Read Routine (OP Routine) 05/06/2025 8:54 AM CDT Pulmonary emphysema, unspecified emphysema type (HCC) Screening for lung cancer SCREENING MAMMOGRAM BILATERAL W CHANG Schedule Routine, Read Routine (OP Routine) 06/11/2024 9:12 AM CDT Screening mammogram, encounter for from Last 3 Months or Most Recently Relevant to Health Maintenance Results * CT Chest WO Contrast F/U Lung Screen Protocol (05/06/2025 8:54 AM CDT) Anatomical Region Laterality Modality Chest N/A Computed Tomogra phy 05/06/2025 9:19 AM CDT Impressions 05/06/2025 9:19 AM CDT 1. LungRADS Category 2 (benign) . Recommend Low dose Screening CT of chest in 12 months. LungRADS Categories: 1 - Negative (no nodules, or only benign calcified or fat-containing nodules) 2 - Benign Appearance or Behavior (nodules with very low likelihood of becoming a clinically active cancer due to size or lack of growth) 3 - Probably Benign (probably benign findings-short term follow up suggested; includes nodules with a low likelihood of becoming a clinically active cancer) 4A,4B,4X - Suspicious (category 3 or 4 nodules with findings for which additional diagnostic testing and/or tissue sampling is recommended) S - Other (clinically significant or potentially clinically significant findings (non-lung cancer) C - Prior Lung Cancer (modifier for patients with a prior diagnosis of lung cancer who return to screening) Electronically signed by: Calvin Leonardo M.D. Narrative 05/06/2025 9:19 AM CDT EXAMINATION: Lung cancer screening CT of the Chest without intravenous contrast HISTORY: Lung Cancer Screening TECHNIQUE: Low radiation dose chest protocol. No intravenous contrast. Reconstructed slice width 1.[address] Dose Index 1.15 mGy. Dose-length product 40.5 mGy-cm. COMPARISON: 05/27/2024, 04/18/2023, 06/27/2022. FINDINGS: Lung nodules or findings of lung cancer: 7 x 6 mm nodule in the medial base left lower lobe at scanner position 523.8 is stable. This is likely within some scarring and is most likely benign. Smoking related lung disease: Severe emphysema. Other findings: Coronary calcifications. Small hiatal hernia. Procedure Note Calvin Leonardo MD - 05/06/2025 EXAMINATION: Lung cancer screening CT of the Chest without intravenous contrast HISTORY: Lung Cancer Screening TECHNIQUE: Low radiation dose chest protocol. No intravenous contrast. Reconstructed slice width 1.[address] Dose Index 1.15 mGy. Dose-length product 40.5 mGy-cm. COMPARISON: 05/27/2024, 04/18/2023, 06/27/2022. FINDINGS: Lung nodules or findings of lung cancer: 7 x 6 mm nodule in the medial base left lower lobe at scanner position 523.8 is stable. This is likely within some scarring and is most likely benign. Smoking related lung disease: Severe emphysema. Other findings: Coronary calcifications. Small hiatal hernia. IMPRESSION: 1. LungRADS Category 2 (benign) . Recommend Low dose Screening CT of chest in 12 months. LungRADS Categories: 1 - Negative (no nodules, or only benign calcified or fat-containing nodules) 2 - Benign Appearance or Behavior (nodules with very low likelihood of becoming a clinically active cancer due to size or lack of growth) 3 - Probably Benign (probably benign findings-short term follow up suggested; includes nodules with a low likelihood of becoming a clinically active cancer) 4A,4B,4X - Suspicious (category 3 or 4 nodules with findings for which additional diagnostic testing and/or tissue sampling is recommended) S - Other (clinically significant or potentially clinically significant findings (non-lung cancer) C - Prior Lung Cancer (modifier for patients with a prior diagnosis of lung cancer who return to screening) Electronically signed by: Calvin Leonardo M.D. Kelsey Low DNP IMG CT PROCEDURES Final Result * Screening Mammogram Bilateral W Chang (06/11/2024 9:12 AM CDT) Anatomical Region Laterality Modality Breast Bilateral Mammography Narrative 06/11/2024 10:15 AM CDT Examination: Screening Mammogram Bilateral W Chang: 06/11/24 Clinical: Screening mammogram, encounter for. Prior Study Comparisons: Comparison was made to the prior available relevant studies at the time of interpretation. Findings: Screening Mammogram Bilateral W Chang Bilateral No significant masses, malignant type calcifications, skin thickening, nipple retraction, or significant lymphadenopathy is noted in either breast. Computer Aided Detection was utilized for the interpretation of this study. The breasts are heterogeneously dense, which may obscure small masses. The patient will be notified of results by letter. Impression: BI-RADS ATLAS category (overall): 2 - Benign There is no mammographic evidence of malignancy. Routine Screening Mammogram in 1 Yr is recommended for bilateral Overall Assessment: 2 - Benign us Self Screening Mammogram IMG MAMMO PROCEDURES Fi nal Result from Last 3 Months or Most Recently Relevant to Health Maintenance Insurance MEDICARE AETNA SENIOR SUPPLEMENT MEDICARE AETNA SENIOR SUPPLEMENT MEDICARE AETNA SENIOR SUPPLEMENT [place] [id number] Care Teams Vocational Training Teacher Relationship Specialty Start Date End Date Porfirio Baeza DO [address] [facility] [address] [place] [address] PCP - General Internal Medicine 06/04/24 Shilo Odom MD Barbecue Cook Obstetrics and Gynecology 12/12/18
== END 2025-05-30 12:20 | disposition home or self-care (01) ==
PROVIDERS: PCP Internal Medicine; Visit Provider Internal Medicine
DX: R91.8 Other nonspecific abnormal finding of lung field (principal); R05.9 Cough, unspecified
CPT/HCPCS: 71046